=== PATIENT | female | born 1970 | race Caucasian/White ===

== ENCOUNTER → 2019-02-21 | Outpatient (REF) | payer OTHER | LOC: M LAB LCGH 13:12 | PROVIDERS: ATTEND Nurse Practitioner Adult Health | DX: Z12.4 Encounter for screening for malignant neoplasm of cervix (principal) ==

== ENCOUNTER 2019-09-18 11:21 | Day surgery (SDC) | payer OTHER ==
[~2019-09-18] VITALS: Ht 158.8 cm; Wt 71.7 kg
[~2019-09-18 11:21] MED LIST: ACET-683 PO; ESCI5SOL3 PO; LIDOCAINE 2% INJ 100 MG/5 ML SDV (FOR ANES.) As Ordered ONE; NS 1,000 ML IV ONE; PREV30TA3 PO; VITA200016 PO
[2019-09-18] MEDS ORDERED: propofoL 200 MG/20 ML VIAL As Ordered ONE (12:10)
[2019-09-18] MEDS ORDERED: fentaNYL 100 MCG/2 ML INJECTION (J3010) As Ordered ONE (12:48)
--- NOTE | 2019-09-18 13:23 | ROOR ---
Patient Name: Hoda Palomo Procedure Date: 09/18/2019 1:08 PM Date of : 1970 Age: 48 Room: [facility] Gender: Female Note Status: Finalized Procedure: Upper GI endoscopy Indications: Epigastric abdominal pain, Functional Dyspepsia, Suspected esophageal reflux Providers: Dangelo STREETER MD Referring MD: JASON AGUILAR MD Requesting Provider: Medicines: Monitored Anesthesia Care Complications: No immediate complications. Procedure: Pre-Anesthesia Assessment: - The heart rate, respiratory rate, oxygen saturations, blood pressure, adequacy of pulmonary ventilation, and response to care were monitored throughout the procedure. The Endoscope was introduced through the mouth, and advanced to the second part of duodenum. The upper GI endoscopy was accomplished without difficulty. The patient tolerated the procedure well. Findings: The examined esophagus was normal. Multiple 5 mm semi-sessile fundic gland polyps were found in the gastric fundus and in the gastric body. This was biopsied with a cold forceps for histology. The exam of the stomach was otherwise normal. The examined duodenum was normal. Biopsies for histology were taken with a cold forceps for evaluation of celiac disease. Impression: - Normal esophagus. - Multiple fundic gland polyps. Biopsied. - Otherwise normal stomach. - Normal examined duodenum. Biopsied. Recommendation: - Continue present medications. - Observe patient's clinical course. - Return to referring physician as previously scheduled. Dangelo Streeter MD Dangelo STREETER MD 09/18/2019 1:22:49 PM Electronically signed by Dangelo STREETER MD Number of Addenda: 0 Note Initiated On: 09/18/2019 1:08 PM Estimated Blood Loss: Estimated blood loss: none.
--- NOTE | 2019-09-18 13:36 | ROOR ---
Patient Name: Hoda Palomo Procedure Date: 09/18/2019 1:09 PM Date of : 1970 Age: 48 Room: [facility] Gender: Female Note Status: Finalized Procedure: Colonoscopy Indications: Generalized abdominal pain, Change in bowel habits Providers: Dangelo STREETER MD Referring MD: JASON AGUILAR MD Requesting Provider: Medicines: Monitored Anesthesia Care Complications: No immediate complications. Procedure: Pre-Anesthesia Assessment: - The heart rate, respiratory rate, oxygen saturations, blood pressure, adequacy of pulmonary ventilation, and response to care were monitored throughout the procedure. The Colonoscope was introduced through the anus and advanced to 10 cm into the ileum. The colonoscopy was performed without difficulty. The patient tolerated the procedure well. The quality of the bowel preparation was good. Findings: The perianal and digital rectal examinations were normal. Small Internal Hemorrhoids. The colon (entire examined portion) appeared normal. The terminal ileum appeared normal. Biopsies for histology were taken with a cold forceps for evaluation of microscopic colitis. Impression: - Small Internal Hemorrhoids. - The entire examined colon is normal. - The examined portion of the ileum was normal. - Biopsies were taken with a cold forceps for evaluation of microscopic colitis. - (Irritable Bowel Syndrome/IBS suspected.) Recommendation: - Telephone endoscopist for pathology results in 2 weeks. - Use fiber, for example Citrucel, Fibercon, Konsyl or Metamucil. - Use Bentyl (dicyclomine) 20 mg PO Q 4-6 hrs PRN 30 min AC. - (the script was sent to your pharmacy on file) - Return to referring physician as previously scheduled. Dangelo Streeter MD Dangelo STREETER MD 09/18/2019 1:36:09 PM Electronically signed by Dangelo STREETER MD Number of Addenda: 0 Note Initiated On: 09/18/2019 1:09 PM Estimated Blood Loss: Estimated blood loss: none.
[2019-09-18 13:55] VITALS: BP 128/81
== END 2019-09-18 14:08 | disposition home or self-care (01) ==
LOC: M OPP 11:21
PROVIDERS: ATTEND Internal Medicine Gastroenterology
DX: R10.84 Generalized abdominal pain (principal); R19.4 Change in bowel habit; K64.8 Other hemorrhoids; K31.7 Polyp of stomach and duodenum; K29.70 Gastritis, unspecified, without bleeding; K30 Functional dyspepsia; K21.9 Gastro-esophageal reflux disease without esophagitis; F41.9 Anxiety disorder, unspecified; J34.89 Other specified disorders of nose and nasal sinuses; Z79.899 Other long term (current) drug therapy
CPT/HCPCS: 43239; 45380; 88305; J3010

== ENCOUNTER → 2021-04-22 | Outpatient (REF) | payer OTHER ==
[~2021-04-22] MED LIST changes: -LIDOCAINE 2% INJ 100 MG/5 ML SDV (FOR ANES.) As Ordered ONE; -NS 1,000 ML IV ONE
== END ==
LOC: M SFHCWAGY 18:46
PROVIDERS: ATTEND Advanced Practice Midwife
DX: Z12.4 Encounter for screening for malignant neoplasm of cervix (principal)
CPT/HCPCS: 87624; G0123

== ENCOUNTER → 2021-04-22 | Outpatient (CLI) | payer OTHER ==
[2021-04-22 17:45] LABS: HEMATOCRIT 36.3 % (36.0-47.0); HEMOGLOBIN 11.6 g/dl (12.0-15.5); MEAN CORPUSCULAR HEMOGLOBIN 27.6 pg (27.0-33.0); MEAN CORPUSCULAR VOLUME 86.2 fl (80.0-96.0); PLATELET COUNT, AUTOMATED 370 10^3/uL (150-450); RED BLOOD COUNT 4.21 10^6/uL (4.00-5.40); WHITE BLOOD COUNT 8.1 10^3/uL (4.0-10.0)
[2021-04-22 18:01] LABS: ALBUMIN 3.5 GM/DL (3.2-5.2); ALT/SGPT 24 U/L (12-78); BILIRUBIN,TOTAL 0.4 MG/DL (0.2-1.0); BLOOD UREA NITROGEN 9 MG/DL (7-18); CALCIUM LEVEL 9.5 MG/DL (8.5-10.1); CARBON DIOXIDE LEVEL 28 MEQ/L (21-32); CHLORIDE LEVEL 106 MEQ/L (98-107); CREATININE FOR GFR 0.62 MG/DL (0.55-1.30); GLOMERULAR FILTRATION RATE > 60.0 (>58); GLUCOSE, FASTING 81 MG/DL (70-100); POTASSIUM SERUM 4.1 MEQ/L (3.5-5.1); SODIUM LEVEL 140 MEQ/L (136-145); TOTAL PROTEIN 6.8 GM/DL (6.4-8.2)
[2021-04-22 18:04] LABS: FOLLICLE STIMULATING HORMONE 31.2 mIU/mL; LUTEINIZING HORMONE 27.9 mIU/mL
[2021-04-22 19:03] LABS: HEMOGLOBIN A1c 5.8 %
== END ==
LOC: M PLALAB 14:20
PROVIDERS: ATTEND Advanced Practice Midwife
DX: R63.5 Abnormal weight gain (principal)

== ENCOUNTER → 2022-08-21 | Outpatient (REF) | payer OTHER | LOC: M SFHCWAGY 16:59 | PROVIDERS: ATTEND Advanced Practice Midwife | DX: Z12.4 Encounter for screening for malignant neoplasm of cervix (principal) | CPT/HCPCS: 87624; G0123 ==